=== PATIENT | female | born 1960 | race Asian ===

== ENCOUNTER 2018-11-05 19:55 | Emergency (ER) | payer OTHER ==
[~2018-11-05] VITALS: Ht 160 cm; Wt 57.6 kg
[2018-11-05 20:25] VITALS: Ht 160 cm; Wt 57.6 kg
[2018-11-05 21:34] VITALS: BP 122/69
== END 2018-11-05 21:34 | disposition home or self-care (01) ==
LOC: ED 19:55
DX: S61.211A Laceration without foreign body of left index finger without damage to nail, initial encounter (principal); W26.0XXA Contact with knife, initial encounter; Y93.89 Activity, other specified; Y92.89 Other specified places as the place of occurrence of the external cause; Y99.8 Other external cause status
CPT/HCPCS: 90715; J1885; J2001